=== PATIENT | male | born 2005 | race Caucasian/White ===

== ENCOUNTER 2023-12-27 19:31 | Outpatient (CLI) | payer BC, SELFPAY ==
--- NOTE | 2024-01-19 13:56 | W.PM.SLEEP ---
Sleep Study Details Details Interpreting Provider: Bernie Date of Sleep Study: 12/27/23 Sleep Study Details: STUDY TYPE:? Home unattended ? BMI:? Not recorded ORDERING PROVIDER:? Bernie INDICATION:? Concerns about sleep apnea ? SLEEP SUMMARY:? 568.6 minutes monitored RESPIRATORY SUMMARY:? AHI 0.6, low oxygen 92, snoring 60.9% PERIODIC LIMB MOVEMENTS OF SLEEP:? Not recorded during home study CARDIAC:? Range 42-105, mean 54.3 IMPRESSION:? This study does not demonstrate clinically significant obstructive sleep apnea. If sleep disorder strongly suspected recommend in-lab study. Significant snoring was noted RECOMMENDATION: See above impression
== END 2023-12-27 19:32 | disposition home or self-care (01) ==
PROVIDERS: PCP Family Medicine; Visit Provider Otolaryngology
DX: G47.30 Sleep apnea, unspecified (principal); G47.10 Hypersomnia, unspecified; R06.83 Snoring
CPT/HCPCS: 95806

== ENCOUNTER 2024-05-11 08:28 | Day surgery (SDC) | payer BC, SELFPAY ==
[2024-05-11] VITALS (15 sets, daily range): BP systolic 127–146; BP diastolic 63–89; PULSE 57–81; RESP 14–18; TEMP 36.6–36.9; O2SAT 95–100; BMI 30.8
--- OUTSIDE RECORDS SUMMARY | 2024-05-11 08:41 | XMS_ITS | Clinical Summary ---
Author Organization [facility] Address [place], [place] [address] Care Team Providers Care Demographer Name Role Phone Amrik Foy MD Primary Care Provider [phone] Allergies Active Allergy Reactions Criticality Noted Date Comments Amoxicillin Hives 05/17/2013 Diphenhydramine Anxiety 05/17/2013 Medications No known medications Active Problems Problem Noted Date Diagnosed Date Abdominal pain 05/17/2013 Dehydration 05/17/2013 Social History Tobacco Use Types Packs/Day Years Used Date Smoking Tobacco: Never Smokeless Tobacco: Never Alcohol Use Standard Drinks/Week Comments Not Currently 0 (1 standard drink = 0.6 oz pur e alcohol) Sex and Gender Information Value Date Recorded Sex Assigned at Not on file Gender Identity Not on file Sexual Orientation Not on file Obstetrics History Last Filed Vital Signs Vital Sign Reading Time Taken Comments Blood Pressure 138/67 02/01/2023 8:25 AM CDT Pulse 59 02/01/2023 8:40 AM CDT Temperature 36.7 ??C (98.1 ??F) 02/01/2023 7:46 AM CD T Respiratory Rate 18 02/01/2023 7:46 AM CDT Oxygen Saturation 99% 02/01/2023 8:40 AM CDT Inhaled Oxygen Concentration - - Weight 122.9 kg (271 lb) 02/01/2023 7:46 AM CDT Height 190.5 cm (6' 3) 02/01/2023 7:46 AM CDT Body Mass Index 33.87 02/01/2023 7:46 AM CDT Plan of Treatment Not on file Advance Directives * Full Code (Latest Code Status on File) Date Activated Date Inactivated Comments 05/17/2013 2:34 PM 05/18/2013 7:36 PM Care Teams Demographer Relationship Specialty Start Date End Date Amrik Foy MD [id number] [place] [address] PCP - General Family Practice 06/17/18
[2024-05-11] MEDS: LACTATED RINGERS 1000 ML 1,000 ML 100 ML IV (08:45)
[2024-05-11] MEDS: OXYMETAZOLINE 0.05% NASAL SPRAY 2 SPRAY NOSTRIL-B (08:57)
[2024-05-11] MEDS: BUPIVACAINE 0.5%/EPINEPHRINE 0.9 MG (30.9 ML) INJECTION (09:45)
[2024-05-11] MEDS: COCAINE HCL 4 % 4 ML SOLUTION NOSTRIL-B (09:46)
[2024-05-11] MEDS: MUPIROCIN 1 GM PACKET 1 APPLIC TOPICAL (09:46)
--- NOTE | 2024-05-11 10:25 | W.ANESCHARGE ---
Anesthesia Charges Start Date/Time Anesthesia Start Date: 05/11/24 Anesthesia Start Time: 09:27 Stop Date/Time Anesthesia Stop Date: 05/11/24 Anesthesia Stop Time: 10:22
--- NOTE | 2024-05-11 10:27 | W.ANESCHARGE ---
Anesthesia Charges Start Date/Time Anesthesia Start Date: 05/11/24 Anesthesia Start Time: 09:27 Stop Date/Time Anesthesia Stop Date: 05/11/24 Anesthesia Stop Time: 10:22
[2024-05-11] MEDS: fentaNYL 100 MCG/2 ML inj 50 MCG IVP ×2 (10:31→10:37)
[2024-05-11] MEDS: ACETAMINOPHEN 325 MG TABLET PO (11:11)
[2024-05-11] MEDS: IBUPROFEN 200 MG TABLET PO (11:12)
[2024-05-11] MEDS: OXYCODONE 5 MG TABLET PO (11:12)
--- NOTE | 2024-05-11 11:21 | W.PM.ENTPROC ---
Procedure Note Date of procedure: 05/11/24 Procedure: Preoperative diagnosis nasal obstruction deviated septum inferior turbinate hypertrophy, adenoid hypertrophy, uvular hypertrophy Postoperative diagnosis same Procedure nasal septoplasty, submucous partial resection inferior turbinates bilateral, adenoidectomy, partial trimming of the uvula Under general trach anesthesia patient was prepped and draped usual fashion the nose decongested injected. The McIvor mouth gag was inserted the tongue retracted forward. The uvula was obscured occluding the view of the nasopharynx so the membranous portion was trimmed off with the needlepoint cautery. The adenoid pad was then visualized indirectly with and removed with suction cautery. No submucous cleft was noted After regarding and gloving attention was turned to the nose. A right hemitransfixion incision was made left anterior and posterior tunnels were created a vertical incision was made through the cartilage and a right posterior tunnel created. The posterior deflected portions of septal bone resected a large piece was trimmed and returned to intraseptal space. The hemitransfixion was closed with 2 4-0 chromic sutures A stab incision was made in the anterior of the right inferior turbinate a tunnel created with a Ruma dissector. The jabari bone was outfractured and a conservative anterior submucous resection performed. The Coblation was used to cauterize intramurally along the inferior 10%. This was repeated on the left side in identical fashion. Silastic stents were secured with 3-0 nylon and Merocel packing was then placed on either side of the nose. The patient procedure was taken recovery in satisfactory condition. Blood loss was less than 25 mL. Surgeon: Hernando Gibbs MD
[2024-05-11] MEDS: METOCLOPRAMIDE HCL 5 MG/ML INJ 10 MG IVP (11:32)
== END 2024-05-11 13:00 | disposition home or self-care (01) ==
LOC: OR 08:29
PROVIDERS: Visit Provider Otolaryngology
PROC: (CPT 30520; principal; 2024-05-11 09:45)
DX: J34.2 Deviated nasal septum (principal); J34.3 Hypertrophy of nasal turbinates; J35.2 Hypertrophy of adenoids; K13.79 Other lesions of oral mucosa
CPT/HCPCS: 30520; 30140; 42831; 42140; 00170; A9270; J0330; J1100; J2250; J2405; J2704; J2765; J3010; J3490; J7120